=== PATIENT | male | born 1950 | race Caucasian/White ===

== ENCOUNTER 2022-10-12 14:23 | Outpatient (CLI) | payer MEDICARE, OTHER ==
--- NOTE | 2022-10-12 15:07 | Sleep Patient Instructions ---
Sleep Center Visit Summary - Patient Visit Information Reason for Visit: Initial consult for evaluation of sleep disordered breathing and other sleep issues. - Patient Instructions Instructions Attached: Sleep Study, Sleep Clinic Visit Additional Instructions: You will be completing a sleep study, either an in-lab polysomnography (PSG) or home sleep study (HST). You will follow-up in the sleep care office after the sleep study is completed to hear the results and talk about therapy, if needed. You will be called by our office staff to schedule this appointment, but you may contact us with any questions. - Clinic Information Contact: [facility] [address] [place] [address] [email or web address] T: [phone]
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
[2022-10-12 16:10] VITALS: BP 120/70
== END 2022-10-12 14:24 | disposition home or self-care (01) ==
LOC: SC 14:23
PROVIDERS: ATTEND Nurse Practitioner Family
DX: G47.10 Hypersomnia, unspecified (principal); G47.00 Insomnia, unspecified; R06.83 Snoring; G47.8 Other sleep disorders; R41.89 Other symptoms and signs involving cognitive functions and awareness; R53.83 Other fatigue; E66.9 Obesity, unspecified; Z68.35 Body mass index [BMI] 35.0-35.9, adult; Z86.16 Personal history of COVID-19; Z86.79 Personal history of other diseases of the circulatory system; Z79.01 Long term (current) use of anticoagulants
CPT/HCPCS: 99203; G0463; 99212

== ENCOUNTER 2022-11-14 19:33 | Outpatient (CLI) | payer MEDICARE, OTHER | END 2022-11-14 19:34 | disposition home or self-care (01) | LOC: SC 19:33 | PROVIDERS: ATTEND Nurse Practitioner Family | DX: G47.33 Obstructive sleep apnea (adult) (pediatric) (principal); G47.61 Periodic limb movement disorder | CPT/HCPCS: 95810 ==

== ENCOUNTER 2023-01-24 12:52 | Outpatient (CLI) | payer MEDICARE, OTHER ==
--- NOTE | 2023-01-24 13:27 | Sleep Patient Instructions ---
Sleep Center Visit Summary - Patient Visit Information Reason for Visit: First Compliance Visit - Patient Instructions Additional Instructions: You were here for follow up of CPAP therapy. You will be continued on CPAP therapy with pressure at 7-10 cmH2O. Please let us know if the pressure change is uncomfortable and we can make further adjustments of the pressure. You should follow up with sleep care in 1-2 months. You may contact us sooner for any questions or concerns. - Clinic Information Contact: [facility] [address] [place] [id number] [email or web address] T: [phone]
--- NOTE | 2023-01-24 13:37 | SLEEP CARE CONSULTATION ---
Information from patient questionnaire entered by Tammi Grady. I have reviewed and concur with the information entered by Tammi Grady. This document represents the service I personally performed and the decisions made by me, Dafne Milligan ARNP. History of Present Illness Service Date and Time: 01/24/2023 1252 Previous diagnosis: Moderate, Obstructive Sleep Apnea-Hypopnea Syndrome AHI: 17.5 (10/2022) Reason for follow up: first compliance Equipment type: CPAP (Yancy G3, s/u 11/2022; NEED MACHINE) Equipment obtained from: Other ([facility]; got initial supplies) Mask style: Full face Mask brand: [id number] (Guille full face) Backup mask available: Yes Last cushion change: 3 weeks Type of Sleep Study: Polysomnography (COMPLETED 11/14/22) HPI additional information: NEY ELISE was diagnosed to have moderate, AHI 17.5, obstructive sleep apnea-hypopnea syndrome and returned today for CPAP therapy first compliance follow-up. Sleep Study - Results Type of Sleep Study: Polysomnography (COMPLETED 11/14/22) CPAP Compliance Data - Data Reviewed with Patient Average duration of nightly device use: 5 hours 11 minutes Compliance rate %: 46.3 (32/41 days used; best of 30 days 56.6%) Current pressure setting (cmH2O): 4-15 (median 6.5, avg 9.1) Average residual AHI: 4.5 Central apnea: 0.6 Obstructive apnea: 4 Hypopnea: 0.4 Average large leak: 66 minutes Subjective Missed days of use due to: reports: mask issues (taking mask off during the night) Patient concerns: reports: mask leak noise, dry mouth, nose, throat, other (mask coming off; hose wrapping). denies: aerophagia, mask discomfort, air blowing in eyes, condensation in mask/hose, nasal congestion, epistaxis Observed to snore while using device: No Current pressure setting perceived as: comfortable On therapy, patient: reports: awakening more refreshed (just a little), other (not feeling much improvement other that reduced snoring and staying asleep). denies: drowsiness while driving Initial [place] Sleepiness Scale score: 5 (10/01/22) Current [place] Sleepiness Scale score: 6 (01/24/23) Allergies and Home Medications Known drug allergies: No Drug allergies reviewed: Yes Home medication list reviewed: Yes (no changes) Allergy and home medication list: Allergies No Known Drug Allergies Allergy (Verified 01/23/23 09:11) Review of Systems Review of systems same as previous: Yes (NO CHANGE) Physical Exam Vital signs obtained and entered by: TAMMI Baird MA Blood Pressure: 110/70 (LEFT ARM) Cuff size: regular Heart Rate: 66 O2 Saturation: 98 Height: 5 ft 7 in Weight: 223 lb 9.6 oz Body Mass Index: 35.0 BMI Classification: Obese Impression and Plan 1. Obstructive Sleep Apnea-Hypopnea Syndrome, moderate, with fair treatment compliance and good apnea control. On CPAP therapy, the patient does feel a little more rested but has not felt an overall improvement of sleep or restfulness yet. He was finding his first mask off his face upon awakening at night and in the morning. He changed his mask to a Guille full face which he feels fits well but still will leak and wake him up at night. He had a large leak average of 66 minutes. But he says the leaking has reduced with changing to the new mask. He is also having some oral dryness and states he is a long time mouth breather. I advised him to try to keep mouth closed and use of mouth moisturizers as needed. Oral dryness can also be reduced by adjusting humidity setting higher or heated hose lower or by adjusting both settings. He voiced understanding. The patients pressure will be changed to autoCPAP 7-10 cmH20 to reflect pressure being used. Patient advised to contact me if pressure change is uncomfortable so that it can be adjusted. Goals for apnea control discussed. Patient's apnea severity and rationale for treatment to reduce apnea, improve sleep quality and reduce cardiovascular and cerebrovascular events was reviewed. I also reviewed the benefit of consistent device use of CPAP for hypertension, cerebrovascular disease (TIA) and asthma. 2. Obesity, unspecified. Currently patients BMI is 35. Obesity increases the risk of apnea, CPAP pressure requirements and overall health risks especially cardiovascular and diabetes. Thus patient is advised to lose weight. * Change auto CPAP pressure to 7-10 cmH2O * Notify me if snoring with mask or feeling that the pressure is too much or too little * Attempt to lose weight * Call this office if any problems using CPAP * Return for follow up in 1-2 months, or sooner if concerns arise Counseling Topics: Spare mask, Weight loss health impact Follow up with Sleep Care in: 1-2 months Visit Type: In Office Time Spent with Patient (minutes): 29 Provider Statement: I spent 100% of the Face to Face Visit with the patient with greater than 50% spent counseling the patient and coordination of care.
[2023-01-24 14:22] VITALS: BP 110/70; O2SAT 98
== END 2023-01-24 12:53 | disposition home or self-care (01) ==
LOC: SC 12:52
PROVIDERS: ATTEND Nurse Practitioner Family
DX: G47.33 Obstructive sleep apnea (adult) (pediatric) (principal); E66.9 Obesity, unspecified; Z68.35 Body mass index [BMI] 35.0-35.9, adult
CPT/HCPCS: 99213; G0463; 99212

== ENCOUNTER 2023-03-01 12:42 | Outpatient (CLI) | payer MEDICARE, OTHER ==
--- NOTE | 2023-03-01 13:20 | Sleep Patient Instructions ---
Sleep Center Visit Summary - Patient Visit Information Reason for Visit: One month followup - Patient Instructions Instructions Attached: Insomnia Tx Additional Instructions: You were here for follow up of CPAP therapy. You will be discontinued on CPAP therapy and started on positional therapy. We will have you fill out a sleep diary for 2 weeks and then meet with Dr. Juan for further evaluation of your insomnia. You should follow up with sleep care in 1-2 months. You may contact us sooner for any questions or concerns. - Clinic Information Contact: [facility] [address] [place] [address] [email or web address] T: [phone]
--- NOTE | 2023-03-01 13:27 | SLEEP CARE CONSULTATION ---
Information from patient questionnaire entered by Tammi Grady. I have reviewed and concur with the information entered by Tammi Grady. This document represents the service I personally performed and the decisions made by , Dafne Milligan ARNP. History of Present Illness Service Date and Time: 03/01/2023 1242 Previous diagnosis: Moderate, Obstructive Sleep Apnea-Hypopnea Syndrome AHI: 17.5 (10/2022) Reason for follow up: one month (F/U) Equipment type: CPAP (Yancy G3, s/u 11/2022; NEED MACHINE) Equipment obtained from: Other ([facility]; not getting supplies) Mask style: Full face Type of Sleep Study: Polysomnography (COMPLETED 11/14/22) HPI additional information: NEY ELISE was diagnosed to have moderate, AHI 17.5, obstructive sleep apnea-hypopnea syndrome and returned today for CPAP therapy one month follow-up. Sleep Study - Results Type of Sleep Study: Polysomnography (COMPLETED 11/14/22) CPAP Compliance Data - Data Reviewed with Patient Average duration of nightly device use: 5 HRS 22 MINS Compliance rate %: 60 (12/29/22-01/27/23; last 30 days show 93% compliance) Current pressure setting (cmH2O): 7-10 Average residual AHI: 0.7 Compliance data discussion: His data was limited to December 29-January 27 in the download but his machine showed 29/30 days used with 93% compliance of 4 hours or more. His average hours of use were 7.02 hours and residual AHI of 1.4. Subjective Patient concerns: reports: air blowing in eyes, mask leak noise, other (triggers asthma). denies: aerophagia, mask discomfort, condensation in mask/hose, nasal congestion, dry mouth, nose, throat, epistaxis Observed to snore while using device: No Current pressure setting perceived as: comfortable On therapy, patient: reports: other (is increasing insomnia issue). denies: drowsiness while driving Initial [place] Sleepiness Scale score: 5 (10/01/22) Current [place] Sleepiness Scale score: 5 (03/01/23) Allergies and Home Medications Known drug allergies: No Drug allergies reviewed: Yes Home medication list reviewed: Yes (no changes) Allergy and home medication list: Allergies No Known Drug Allergies Allergy (Verified 02/28/23 10:04) Review of Systems Review of systems same as previous: Yes (NO CHANGE) Physical Exam Vital signs obtained and entered by: TAMMI Baird MA Blood Pressure: 150/92 (LEFT ARM) Cuff size: regular Heart Rate: 85 O2 Saturation: 94 Height: 5 ft 7 in Weight: 227 lb Body Mass Index: 35.5 BMI Classification: Obese Impression and Plan 1. Obstructive Sleep Apnea-Hypopnea Syndrome, moderate, with fair treatment compliance and good apnea control. He has given it a good try but he does not feel that the CPAP is helping him to sleep better overall. He feels the CPAP is making his insomnia worse and possibly exacerbating his asthma. I reviewed his sleep study and his non-supine AHI was 4.06. Since patients apnea is primarily in supine position, patient advised to try positional therapy and agreed with plan. Patient's apnea severity and rationale for treatment to reduce apnea, improve sleep quality and reduce cardiovascular and cerebrovascular events was reviewed. He has a history of hypertension, cerebrovascular disease (TIA) and asthma. 2. Insomnia, unspecified. Patient still has trouble with being able to get and stay asleep at night. He feels the CPAP has been causing more wake ups because he tries to sleep on his side and it causes mask leaks and air into his eyes. He feels his sleep has gotten worse and his insomnia worse with using the CPAP. He has other issues including pain and ringing in his years that contribute to sleep interruption. He would like further evaluation and help for his insomnia. I recommend that he complete a sleep diary for 2 weeks and then follow-up for further evaluation and treatment of his insomnia. 3. Obesity, unspecified. Currently patients BMI is 35.5. Obesity increases the risk of apnea, CPAP pressure requirements and overall health risks especially cardiovascular and diabetes. Thus patient is advised to lose weight. * Stop CPAP * Start Positional therapy * Fill out 2 weeks of sleep diary * Attempt to lose weight * Call this office if any problems * Return for follow up in 1-[address] Juan for insomnia, or sooner if concerns arise Counseling Topics: Sleeping position, Weight loss health impact Follow up with Sleep Care in: 1-2 months Visit Type: In Office Time Spent with Patient (minutes): 28 Provider Statement: I spent 100% of the Face to Face Visit with the patient with greater than 50% spent counseling the patient and coordination of care.
[2023-03-01 13:28] VITALS: BP 150/92; O2SAT 94
== END 2023-03-01 12:43 | disposition home or self-care (01) ==
LOC: SC 12:42
PROVIDERS: ATTEND Nurse Practitioner Family
DX: G47.33 Obstructive sleep apnea (adult) (pediatric) (principal); G47.00 Insomnia, unspecified; E66.9 Obesity, unspecified; Z68.35 Body mass index [BMI] 35.0-35.9, adult
CPT/HCPCS: 99213; G0463; 99212